=== PATIENT | female | born 1985 | race Caucasian/White ===

== ENCOUNTER 2021-08-21 13:29 | Emergency (ER) | payer BC ==
[~2021-08-21] VITALS: Ht 160 cm; Wt 113.4 kg
[2021-08-21 13:34] VITALS: BP_SYST 147
[2021-08-21] MEDS ORDERED: EPINEPHrine 1 MG/ML VIAL IM ONE (14:30)
[2021-08-21] MEDS ORDERED: methylPREDNISolone SOD SUCC/PF 62.5 MG/ML VIAL IM ONE (14:30)
[2021-08-21] MEDS ORDERED: DIPHENHYDRAMINE INJ 50 MG/ML VIAL IM ONE (14:30)
[2021-08-21] MEDS ORDERED: BEN50 PO (15:11)
[2021-08-21] MEDS ORDERED: FAMO20TA8 PO (15:12)
[2021-08-21 15:20] VITALS: BP_SYST 134
== END 2021-08-21 15:20 | disposition home or self-care (01) ==
LOC: SED 13:29
DX: T78.1XXA Other adverse food reactions, not elsewhere classified, initial encounter (principal); J45.909 Unspecified asthma, uncomplicated; E11.9 Type 2 diabetes mellitus without complications; Z79.899 Other long term (current) drug therapy; X58.XXXA Exposure to other specified factors, initial encounter
CPT/HCPCS: 96372; 99284; J0171; J1200; J2930